=== PATIENT | female | born 1985 | race Caucasian/White ===

== ENCOUNTER 2020-11-21 16:27 | Emergency (ER) | payer OTHER ==
[~2020-11-21] VITALS: Ht 170.2 cm; Wt 68.2 kg
[2020-11-21 16:38] VITALS: BP 143/94
[2020-11-21] MEDS ORDERED: ketorolac tromethamine 15mg/ml inj. IM ONE (16:45)
== END 2020-11-21 17:26 | disposition home or self-care (01) ==
LOC: ER 16:27
DX: T75.4XXA Electrocution, initial encounter (principal); M79.602 Pain in left arm; Z88.1 Allergy status to other antibiotic agents; Z88.8 Allergy status to other drugs, medicaments and biological substances
CPT/HCPCS: 93005; 96372; 99283; J1885